=== PATIENT | male | born 1990 | race Caucasian/White ===

== ENCOUNTER 2018-04-27 14:55 | Emergency (ER) | payer BC, OTHER ==
[2018-04-27 15:26] LABS: Bilirubin Negative (Negative); Blood, Urine Negative (Negative); Clarity CLEAR (Clear); Glucose, Urine (Dipstick) Negative (Negative); Leukocyte Negative (Negative); Nitrite Negative (Negative); Protein, Urine (Dipstick) Negative (Neg-Trace); Specific Gravity, Urine 1.005 (1.002-1.036); Urobilinogen 0.2 mg/dL (0.2-1.0)
[2018-04-27 15:33] LABS: #Eosinphils 0.1 thou/uL (0.0-0.7); #Lymphocytes 2.1 thou/uL (1.20-3.40); #Monocytes 0.5 thou/uL (0.11-0.59); #Neutrophils 4.4 thou/uL (1.40-6.50); %Basophils 0.6 % (0.0-1.0); %Eosinophils 1.4 % (0.0-10.0); %Lymphocytes 29.3 % (21.0-51.0); %Monocytes 7.3 % (0.0-10.0); %Neutrophils 61.5 % (42.0-75.0); Hemoglobin 12.4 g/dL (14.0-18.0); Mean Corpuscular HGB CONC 32.9 g/dL (32.0-36.0); Mean Corpuscular Hemoglobin 25.6 pg (27.0-31.0); Mean Corpuscular Volume 77.8 fl (80.0-94.0); Mean Platelet Volume 7.4 fL (7.4-10.4); Platelet Count 247 thou/uL (130-400); Red Blood Cell (RBC) Count 4.86 mill/uL (4.70-6.10); White Blood Cell (WBC) Count 7.2 thou/uL (4.8-10.8)
[2018-04-27 15:55] LABS: ALT (SGPT) 20 U/L (8-55); AST (SGOT) 18 U/L (5-34); Albumin 4.3 g/dL (3.5-5.0); Alkaline Phosphatase 80 U/L (40-150); Anion Gap 12 mmol/L (10-20); BUN (Urea Nitrogen) 8 mg/dL (8.9-20.6); Bilirubin, Total 0.4 mg/dL (0.2-1.2); Calc. Creatinine Clearance 0 mL/min (70-130); Calcium 9.5 mg/dL (7.8-10.44); Carbon Dioxide 30 mmol/L (22-29); Chloride 103 mmol/L (98-107); Estimated GFR-MDRD Greater than 90; Globulin 2.6 g/dL (2.4-3.5); Glucose 80 mg/dL (70-105); Lipase 19 U/L (8-78); Protein, Total 6.9 g/dL (6.0-8.3); Sodium 141 mmol/L (136-145)
[2018-04-27] MEDS ORDERED: Ondansetron ODT 4 MG TAB ONE (16:11)
[2018-04-27] MEDS ORDERED: Fentanyl 100 MCG/2 ML VIAL ONE (18:14)
--- NOTE | 2018-04-27 20:35 | CT ---
CT ABDOMEN WITH CONTRAST CT PELVIS WITH CONTRAST: DATE: 04/27/18 TIME: 5:49 p.m. HISTORY: 28-year-old male with cramping type of generalized abdominal pain for five days with nausea, emesis, and diarrhea. COMPARISON: Noncontrast CT of 05/02/13. TECHNIQUE: IV injection of iodinated contrast media: 100 mL Isovue 370. Oral contrast media: PO Isovue. FINDINGS: The spleen measures 14 x 8.5 x 15 cm, unchanged. Narrowed gastric lumen with suture line. Slightly lo w hepatic attenuation, questionable for fatty liver. Cholecystectomy clips. No portal vein thrombosis or biliary ductal dilation. No hepatic mass. Lung bases are clear. No pleural effusion. Abdominal ao rta, bilateral kidneys, adrenals, pancreas, appendix, and urinary bladder, are normal. No signs of ac [place] colonic diverticulitis. No small bowel dilatation. No pneumoperitoneum or ascites. No iliac chain , retroperitoneal, judy hepatis, or mesenteric lymphadenopathy. No destructive osseous lesion. IMPRESSION: 1. No acute findings. 2. Status post vertical sleeve gastrectomy. 3. Status post cholecystectomy. 4. Questionable hepatic steatosis. 5. Borderline or mild splenomegaly, similar to 05/02/13. QUAN [place] POS: [facility]
== END 2018-04-27 18:57 | disposition home or self-care (01) ==
LOC: ERS 14:55
DX: R10.13 Epigastric pain (principal); R11.2 Nausea with vomiting, unspecified; F32.9 Major depressive disorder, single episode, unspecified; F41.9 Anxiety disorder, unspecified; J45.909 Unspecified asthma, uncomplicated
CPT/HCPCS: 36415; 74177; 80053; 81003; 83690; 85025; 93005; 96361; 96374; J3010; Q0162

== ENCOUNTER 2018-12-03 10:12 | Outpatient (CLI) | payer BC ==
[~2018-12-03 10:12] MED LIST: Iopamidol 370 76% 100 ML VIAL ONE
--- NOTE | 2018-12-03 14:06 | CT ---
CT OF ABDOMEN PERFORMED WITH IV CONTRAST ENHANCEMENT: Date: 12/03/18 HISTORY: Patient has a history of gastric sleeve procedure in January 2012. The patient has had epigastric pain, which has worsened in the past week. History of cholecystectomy. COMPARISON: 04/27/18. FINDINGS: The lung bases are clear. There is suggestion of some mild fatty change of the liver, which measures 18.7 cm in length. The spl een is mildly enlarged, it measures 15.8 cm. Pancreas region is unremarkable. Gallbladder has been re moved. Right and left adrenal glands, and right and left kidneys are normal in appearance. No significant pe riaortic adenopathy. There are small mesenteric lymph nodes. These are fairly stable in appearance as compared to the prior examination. Postoperative changes of the stomach are noted. No free fluid. IMPRESSION: 1. No acute abnormalities of the abdomen. 2. Postop gastric sleeve and cholecystectomy. 3. Stable appearance to mesenteric lymph nodes. POS: [facility]
== END 2018-12-03 10:13 | disposition home or self-care (01) ==
LOC: CT 10:12
PROVIDERS: ATTEND Family Medicine
DX: R10.9 Unspecified abdominal pain (principal); Z90.49 Acquired absence of other specified parts of digestive tract
CPT/HCPCS: 74160

== ENCOUNTER 2018-12-04 20:31 | Emergency (ER) | payer BC ==
[2018-12-04 21:11] LABS: Bilirubin Small (Negative); Blood, Urine Negative (Negative); Clarity CLEAR (Clear); Glucose, Urine (Dipstick) Negative (Negative); Leukocyte Negative (Negative); Nitrite Negative (Negative); Protein, Urine (Dipstick) Trace mg/dL (Neg-Trace); Specific Gravity, Urine 1.033 (1.002-1.036); pH, Urine 5.5 (5.0-9.0)
[2018-12-04 21:25] LABS: #Basophils 0.1 thou/uL (0.0-0.2); #Eosinphils 0.1 thou/uL (0.0-0.7); #Lymphocytes 2.8 thou/uL (1.20-3.40); #Monocytes 0.6 thou/uL (0.11-0.59); #Neutrophils 3.3 thou/uL (1.40-6.50); %Eosinophils 2.1 % (0.0-10.0); %Lymphocytes 40.8 % (21.0-51.0); %Monocytes 8.6 % (0.0-10.0); %Neutrophils 47.6 % (42.0-75.0); Hemoglobin 15.3 g/dL (14.0-18.0); Mean Corpuscular HGB CONC 32.5 g/dL (32.0-36.0); Mean Corpuscular Hemoglobin 27.3 pg (27.0-31.0); Mean Corpuscular Volume 84.1 fL (78.0-98.0); Mean Platelet Volume 7.7 fL (7.4-10.4); Platelet Count 268 thou/uL (130-400); RBC Distribution Width 14.4 % (11.5-14.5); Red Blood Cell (RBC) Count 5.62 mill/uL (4.70-6.10)
[2018-12-04] MEDS ORDERED: Mag-Al 1200 mg/1200 mg/30 ML UDCUP ONE (21:49)
[2018-12-04] MEDS ORDERED: Metoclopramide HCl 10 MG/2 ML VIAL ONE (21:49)
[2018-12-04] MEDS ORDERED: Lidocaine Viscous Sol 2% 15 ml UD Cup ONE (21:49)
[2018-12-04 21:52] LABS: ALT (SGPT) 41 U/L (8-55); AST (SGOT) 28 U/L (5-34); Albumin 4.5 g/dL (3.5-5.0); Alkaline Phosphatase 86 U/L (40-150); Anion Gap 14 mmol/L (10-20); BUN (Urea Nitrogen) 8 mg/dL (8.9-20.6); Bilirubin, Total 0.4 mg/dL (0.2-1.2); Calc. Creatinine Clearance 0 mL/min (70-130); Calcium 9.6 mg/dL (7.8-10.44); Carbon Dioxide 26 mmol/L (22-29); Chloride 105 mmol/L (98-107); Estimated GFR-MDRD Greater than 90; Globulin 2.9 g/dL (2.4-3.5); Glucose 93 mg/dL (70-105); Lipase 22 U/L (8-78); Potassium 3.8 mmol/L (3.5-5.1); Protein, Total 7.4 g/dL (6.0-8.3); Sodium 141 mmol/L (136-145)
== END 2018-12-04 23:13 | disposition home or self-care (01) ==
LOC: ERS 20:31
DX: R11.2 Nausea with vomiting, unspecified (principal); R19.7 Diarrhea, unspecified; F41.9 Anxiety disorder, unspecified; F32.9 Major depressive disorder, single episode, unspecified; J45.909 Unspecified asthma, uncomplicated; Z79.899 Other long term (current) drug therapy
CPT/HCPCS: 80053; 81003; 83690; 85025; 96361; 96374; J2765

== ENCOUNTER 2021-01-28 09:55 | Outpatient (CLI) | payer BC | END 2021-01-28 09:56 | disposition home or self-care (01) | LOC: DTY/OP 09:55 | PROVIDERS: ATTEND Surgery | DX: E66.01 Morbid (severe) obesity due to excess calories (principal) | CPT/HCPCS: 97802 ==

== ENCOUNTER 2021-04-16 15:30 | Inpatient (IN) | payer BC ==
[2021-04-23] MEDS ORDERED: Heparin 5,000 UNITS/ML VIAL ONE (12:25)
[2021-04-23] MEDS ORDERED: Levofloxacin 500 mg/D5W 100 ml Premix Bag ONE (14:39)
[2021-04-23] MEDS ORDERED: Lidocaine 1% w/Epinephrine 1:100K 20 ML VIAL ONE (14:45)
[2021-04-23] MEDS ORDERED: Bupivacaine 0.25% HCL 30 ML VIAL ONE (14:45)
[2021-04-23] MEDS ORDERED: Dexamethasone 20 MG/5 ML VIAL ONE (14:59)
[2021-04-23] MEDS ORDERED: ePHEDrine Sulfate 50 MG/10 ML VIAL ONE (14:59)
[2021-04-23] MEDS ORDERED: PHENYLEPHRINE-NS 100 MCG/ML 10 ML SYRINGE ONE (14:59)
[2021-04-23] MEDS ORDERED: PROPOFOL 200 MG/20 ML VIAL ONE (14:59)
[2021-04-23] MEDS ORDERED: Rocuronium Bromide 10 MG/ML (10ML VIAL) ONE (14:59)
[2021-04-23] MEDS ORDERED: diphenhydrAMINE 50 MG/ML VIAL ONE (14:59)
[2021-04-23] MEDS ORDERED: Lidocaine 1% PF 5 ML VIAL ONE (14:59)
[2021-04-23] MEDS ORDERED: Ketorolac Tromethamine 30 MG/ML VIAL ONE (14:59)
[2021-04-23] MEDS ORDERED: Fentanyl 250 MCG/5 ML VIAL ONE (15:06)
[2021-04-23] MEDS ORDERED: SUGAMMADEX SODIUM 500 MG/5 ML VIAL ONE (16:47)
[2021-04-23] MEDS ORDERED: Promethazine HCl 25 MG/ML VIAL IM PRN ×3 (17:20→17:45)
[2021-04-23] MEDS ORDERED: Promethazine HCl 25 MG/ML VIAL SLOW IVP PRN (17:20)
[2021-04-23] MEDS ORDERED: Meperidine HCl/PF 25 MG/ML VIAL SLOW IVP PRN (17:20)
[2021-04-23] MEDS ORDERED: Hydrocodone-Acetamin 15 ML UDCUP PO PRN (17:23)
[2021-04-23] MEDS ORDERED: hydrALAZINE 20 MG/ML VIAL SLOW IVP PRN (17:23)
[2021-04-23] MEDS ORDERED: diphenhydrAMINE 50 MG/ML VIAL IVP PRN (17:23)
[2021-04-23] MEDS ORDERED: Dextrose 5% in Water 1,000 ML IV PRN (17:23)
[2021-04-23] MEDS ORDERED: Dextrose 50% Abboject 50 ML SYRINGE SLOW IVP PRN (17:23)
[2021-04-23] MEDS ORDERED: Promethazine HCl 25 MG/ML VIAL ONE (17:41)
[2021-04-23] MEDS ORDERED: diphenhydrAMINE 25 MG CAP PO PRN (17:45)
[2021-04-23] MEDS ORDERED: Naloxone HCl 0.4 mg/ml Vial IV PRN (17:45)
[2021-04-23] MEDS ORDERED: diphenhydrAMINE 50 MG/ML VIAL IM/IV PRN (17:45)
[2021-04-23] MEDS ORDERED: Zolpidem Tartrate 5 MG TAB PO PRN (17:45)
[2021-04-23] MEDS ORDERED: Sodium Chloride 0.9% (PF) 10 ML VIAL FS PRN (17:45)
[2021-04-23] MEDS ORDERED: Fentanyl CADD 100 ML IVPB SCH (17:45)
[2021-04-23] MEDS ORDERED: Ondansetron PF 4 MG/2 ML Vial IVP PRN (17:45)
[2021-04-23] MEDS ORDERED: Ondansetron PF 4 MG/2 ML Vial ONE (18:26)
[2021-04-23 19:42] VITALS: BMI 43.1
[2021-04-23] MEDS ORDERED: Enoxaparin Sodium 40 MG/0.4 ML SYRINGE SC SCH (21:00)
[2021-04-24] MEDS: D5 1/2 NS w/20 mEq KCL 1,000 ML IV SCH ×2 (01:28→01:34)
[2021-04-24 06:03] LABS: #Monocytes 0.4 thou/uL (0.11-0.59); #Neutrophils 7.8 thou/uL (1.40-6.50); %Basophils 0.4 % (0.0-1.0); %Lymphocytes 10.9 % (21.0-51.0); %Monocytes 4.1 % (0.0-10.0); %Neutrophils 84.6 % (42.0-75.0); Hemoglobin 12.5 g/dL (14.0-18.0); Mean Corpuscular HGB CONC 33.1 g/dL (32.0-36.0); Mean Corpuscular Hemoglobin 29.9 pg (27.0-31.0); Mean Corpuscular Volume 90.3 fL (78.0-98.0); Mean Platelet Volume 8.3 fL (7.4-10.4); Platelet Count 230 thou/uL (130-400); RBC Distribution Width 12.5 % (11.5-14.5); Red Blood Cell (RBC) Count 4.16 mill/uL (4.70-6.10); White Blood Cell (WBC) Count 9.2 thou/uL (4.8-10.8)
[2021-04-24 06:22] LABS: Anion Gap 13 mmol/L (10-20); BUN (Urea Nitrogen) 9 mg/dL (8.9-20.6); Calc. Creatinine Clearance 217 mL/min (70-130); Calcium 9.4 mg/dL (7.8-10.44); Carbon Dioxide 25 mmol/L (22-29); Chloride 104 mmol/L (98-107); Glucose 170 mg/dL (70-105); Potassium 4.8 mmol/L (3.5-5.1); Sodium 137 mmol/L (136-145)
[2021-04-24] MEDS ORDERED: Pantoprazole 40 MG VIAL IVP SCH (09:00)
[2021-04-24 11:58] VITALS: BP 128/74; TEMP 98.3
== END 2021-04-24 14:23 | disposition home or self-care (01) | DRG 621 ==
LOC: SURG A 04-23 10:08 → SURG B 04-23 19:58
PROVIDERS: ADMIT Surgery; ATTEND Surgery
PROC: 0D164ZA Bypass Stomach to Jejunum, Percutaneous Endoscopic Approach (ICD-10-PCS; principal; 2021-04-23)
PROC: 8E0W4CZ Robotic Assisted Procedure of Trunk Region, Percutaneous Endoscopic Approach (ICD-10-PCS; 2021-04-23)
DX: E66.01 Morbid (severe) obesity due to excess calories (principal); J45.909 Unspecified asthma, uncomplicated; E11.9 Type 2 diabetes mellitus without complications; F90.9 Attention-deficit hyperactivity disorder, unspecified type; K21.9 Gastro-esophageal reflux disease without esophagitis; Z79.899 Other long term (current) drug therapy; Z90.49 Acquired absence of other specified parts of digestive tract; Z68.41 Body mass index [BMI] 40.0-44.9, adult; Z88.5 Allergy status to narcotic agent; Z88.8 Allergy status to other drugs, medicaments and biological substances
CPT/HCPCS: 36415; 80048; 85025; 94760; C9113; J1100; J1200; J1644; J1650; J1885; J1956; J2405; J2550; J2704; J3010; J3480; S0020